=== PATIENT | female | born 1930 | race Caucasian/White ===

== ENCOUNTER → 2020-12-23 | Outpatient (CLI) | payer OTHER | LOC: CT 09:43 | DX: M54.16 Radiculopathy, lumbar region (principal) | CPT/HCPCS: 36415; 72133; 82565; Q9967 ==

== ENCOUNTER → 2021-01-16 | Outpatient (CLI) | payer OTHER | LOC: KOH-I 15:38 | DX: M25.551 Pain in right hip (principal); M25.552 Pain in left hip; M16.0 Bilateral primary osteoarthritis of hip | CPT/HCPCS: 72192 ==